=== PATIENT | male | born 1980 | race Caucasian/White ===

== ENCOUNTER 2021-01-26 05:20 | Emergency (ER) | payer BC ==
[~2021-01-26] VITALS: Ht 172.7 cm; Wt 108.0 kg
[2021-01-26] MEDS ORDERED: ALLO100T PO (05:29)
[2021-01-26] MEDS ORDERED: LOSA100T50 PO (05:29)
[2021-01-26] MEDS ORDERED: KETAMINE HCL 200 MG/20 ML VIAL IV ONE ×2 (05:50→07:10)
[2021-01-26] MEDS ORDERED: NS 1,000 ML IV SCH ×2 (05:50→07:45)
[2021-01-26] MEDS: propofoL 200 MG/20 ML VIAL IV.PROC PRN ×10 (06:17→08:02)
[2021-01-26] MEDS ORDERED: MORPHINE 4 MG/ML 1ML VIAL/SYRINGE (J2270) IV PRN (06:50)
[2021-01-26] MEDS ORDERED: fentaNYL 100 MCG/2 ML INJECTION (J3010) As Ordered ONE (07:35)
[2021-01-26] MEDS ORDERED: fentaNYL 100 MCG/2 ML INJECTION (J3010) IV ONE (07:35)
--- NOTE | 2021-01-26 08:09 | REPVR ---
PROCEDURE INFORMATION: Exam: XR Left Elbow Exam date and time: 01/26/2021 6:04 AM Age: 40 years old Clinical indication: Pain; Elbow; Left; Additional info: Pain, dislocation TECHNIQUE: Imaging protocol: XR Left elbow. Views: 3 or more views. COMPARISON: No relevant prior studies available. FINDINGS: Bones/joints: There is no acute fracture or osteochondral defect. The proximal radius looks to be displaced I think posteriorly and slightly ulnar relative to its normal position. Tiny joint effusion. Soft tissues: Normal. IMPRESSION: Dislocation without visualized fracture line. Electronically signed by: Tristen Tuttle On 01/26/2021 08:08:33 AM
--- NOTE | 2021-01-26 08:31 | CR.PDOC ---
General Date of Consultation: Jan 26, 2021 Referring Provider: Mingo Nielsen M.D. Attending Physician: Mingo Nielsen M.D. Consultation REASON FOR CONSULTATION/CHIEF COMPLAINT: [L elbow dislocation]. HISTORY OF PRESENT ILLNESS: [40 yo M s/p fall at home in the shower. Presented to OSH with same and transferred here. Denies LOC.]. ALLERGIES: Please see below. HOME MEDICATIONS: Please see below. PAST MEDICAL HISTORY: 1. [N/A]. 2. . PAST SURGICAL HISTORY: 1. [N/A] 2. SOCIAL HISTORY: + EtOH REVIEW OF SYSTEMS: CONSTITUTIONAL: . HEENT: . CARDIOVASCULAR: . RESPIRATORY: . GENITOURINARY: . MUSCULOSKELETAL: [L elbow deformity Vital Signs Date Time Temp Pulse Resp B/P (MAP) Pulse Ox O2 Delivery O2 Flow Rate FiO2 01/26/21 05:21 98.5 105 20 148/79 (102) 98 Room Air 01/26/21 06:15 98 01/26/21 06:18 3.0 ]. GASTROINTESTINAL: . SKIN: . NEUROLOGICAL: . PSYCHIATRIC: . ENDOCRINE: . HEMATOLOGIC/LYMPHATIC: . ALLERGIC/IMMUNOLOGIC: . PHYSICAL EXAMINATION: VITAL SIGNS: Please see below. GENERAL APPEARANCE: [AAOx3]. HEENT: . RESPIRATORY: [Chest rise and fall]. CARDIOVASCULAR: . ABDOMEN: . EXTREMITIES: [LUE - + deformity @ elbow AIN/PIN/U intact cap refill brisk @ 2 sec]. NEUROLOGICAL: . PSYCHIATRIC: . LABORATORY DATA: Please see below. ASSESSMENT/PLAN: 1. [40 yo M with L elbow dislocation]. 2. [Plan for closed reduction in ED --> splint]. 3. F/u 7-10 days in office. 4. NWB in splint/sling at all times Vital Signs/I&O Vital Signs Date Time Temp Pulse Resp B/P (MAP) Pulse Ox O2 Delivery O2 Flow Rate FiO2 01/26/21 07:42 20 96 Nasal Cannula 2.0 01/26/21 07:26 98 142/69 (93) 01/26/21 06:15 98 01/26/21 05:21 98.5 Allergies Coded Allergies: No Known Allergies (Unverified , 01/26/21) Home Medications Scheduled Allopurinol (Allopurinol) 100 Mg Tablet, 300 MG PO DAILY for 30 Days, #30 (Reported) Losartan Potassium (Losartan Potassium) 100 Mg Tablet, 100 MG PO DAILY for 30 Days, #30 (Reported) SERA TORRES MD Jan 26, 2021 08:30
--- NOTE | 2021-01-26 08:43 | REP ---
INDICATION: reduction. COMPARISON: Elbow series 01/26/2021. TECHNIQUE: C-arm fluoroscopy, 4 images provided. FINDINGS: Four images demonstrate the elbow joint with radial head and capitellum alignment and images are available on the PACs. IMPRESSION: Status post C-arm fluoroscopy for elbow reduction and confirmation. <Electronically signed by Miguel A Gonsales > 01/26/21 0830
[2021-01-26] MEDS ORDERED: HYDR-4571 PO (09:27)
[2021-01-26 09:30] VITALS: BP 162/88
--- NOTE | 2021-01-26 09:32 | REP ---
INDICATION: POST REDUCTION. COMPARISON: 01/26/2021 at 5:54:49 a.m. TECHNIQUE: Single incomplete lateral of the left elbow obtained 01/26/2021 at 6:38:57 a.m. FINDINGS: Incomplete lateral view with bandage in place no significant change from the exam obtained minutes earlier. IMPRESSION: I cannot confirm proper alignment on this limited exam.. <Electronically signed by Robby Ibrahim > 01/26/21 0928
== END 2021-01-26 09:41 | disposition home or self-care (01) ==
LOC: M ED 05:20
DX: S53.122A Posterior subluxation of left ulnohumeral joint, initial encounter (principal); W18.2XXA Fall in (into) shower or empty bathtub, initial encounter; Y92.012 Bathroom of single-family (private) house as the place of occurrence of the external cause; I10 Essential (primary) hypertension

== ENCOUNTER 2021-01-28 14:10 | Emergency (ER) | payer BC ==
[~2021-01-28] VITALS: Ht 172.7 cm; Wt 105.3 kg
[~2021-01-28 14:10] MED LIST: ALLO100T PO; HYDR-4571 PO; LOSA100T50 PO
[2021-01-28] MEDS ORDERED: HYDR-3713 (14:37)
[2021-01-28 19:12] VITALS: BP 162/86
== END 2021-01-28 19:14 | disposition home or self-care (01) ==
LOC: M ED 14:10
DX: R22.32 Localized swelling, mass and lump, left upper limb (principal); I10 Essential (primary) hypertension; Z79.899 Other long term (current) drug therapy

== ENCOUNTER → 2021-02-02 | Outpatient (CLI) | payer BC ==
[~2021-02-02] MED LIST changes: +HYDR-3713
--- NOTE | 2021-02-02 12:12 | REP ---
INDICATION: UNSPECIFIED DISLOCATION OF LEFT RADIAL HEAD, SUBS ENCNTR. COMPARISON: 01/26/2021. TECHNIQUE: There are three views, single AP and 2 lateral projections. FINDINGS: The previous dislocation has been satisfactorily reduced. There are no fractures. There is periarticular soft tissue edema. There is a joint hemarthrosis. IMPRESSION: Satisfactory reduction of the previous dislocation with adjacent soft tissue edema and hemarthrosis. <Electronically signed by Thomas Gracia > 02/02/21 [id number]
== END ==
LOC: M SOG 09:06
PROVIDERS: ATTEND Orthopaedic Surgery
DX: S53.005D Unspecified dislocation of left radial head, subsequent encounter (principal)

== ENCOUNTER → 2021-03-18 | Outpatient (CLI) | payer BC ==
--- NOTE | 2021-03-18 17:23 | REP ---
INDICATION: RT HIP PAIN, LT KNEE PAIN. COMPARISON: None. TECHNIQUE: AP pelvis two views right hip FINDINGS: There is been previous right hip pinning with 3 cancellous screws seen affixing an old healed right hip fracture. There is bilateral femoral head marginal osteophyte formation. There is bilateral asymmetric hip joint space narrowing right greater than left. There is no evidence of an acute fracture, dislocation, or subluxation. IMPRESSION: Chronic changes as described above. <Electronically signed by Robby Ibrahim > 03/18/21 [id number]
--- NOTE | 2021-03-18 17:23 | REP ---
INDICATION: RT HIP PAIN, LT KNEE PAIN. COMPARISON: None. TECHNIQUE: Standing bilateral AP view of the knees and additional lateral and sunrise view of the left knee. FINDINGS: The compartments are symmetric and well maintained. There is no acute fracture or destructive osseous lesion. IMPRESSION: Within normal limits <Electronically signed by Robby Ibrahim > 03/18/21 [id number]
== END ==
LOC: M SOG 11:06
PROVIDERS: ATTEND Orthopaedic Surgery Adult Reconstructive Orthopaedic Surgery
DX: M25.762 Osteophyte, left knee (principal); M25.562 Pain in left knee; M25.551 Pain in right hip

== ENCOUNTER → 2021-04-07 | Outpatient (CLI) | payer BC ==
[~2021-04-07] MED LIST changes: +BUPIVACAINE HCL 0.5% 10ML VIAL As Ordered ONE; +ISOVUE-300 61% 50ML VIAL As Ordered ONE; +methylPREDNISolone 80MG/ML SUSP 1ML VIAL (J1040) As Ordered ONE
--- NOTE | 2021-04-07 16:46 | REP ---
INDICATION: OA RIGHT HIP. COMPARISON: None. TECHNIQUE: The procedure was performed under the direct supervision of Dr. De Leon. The benefits and risks including but not limited to pain infection and bleeding and anaphylaxis were explained to the patient and informed consent was obtained. The right femoral neck was localized using fluoroscopic guidance. The skin was prepped and draped in a sterile fashion. 1% lidocaine was used as a local anesthetic. Using fluoroscopic guidance, and last image hold technology, a 22-gauge spinal needle was inserted and advanced to the femoral neck. 0.5 ml of Isovue-300 was injected to verify placement. Four ml of a solution containing 3 ml of 0.5% Marcaine and 1 mL of Depo-Medrol 80 mg was injected. The needle was then removed. The patient tolerated the procedure well and there were no immediate complications. Less than 6 seconds of fluoro time was utilized for this procedure. FINDINGS: None IMPRESSION: Fluoro guidance for right hip injection. <Electronically signed by Angelito Horvath > 04/07/21 [id number] <Electronically signed by Wong De Leon > 04/07/21 [id number]
== END ==
LOC: M RADPRO 13:20
PROVIDERS: ATTEND Orthopaedic Surgery Adult Reconstructive Orthopaedic Surgery
DX: M16.31 Unilateral osteoarthritis resulting from hip dysplasia, right hip (principal)
CPT/HCPCS: 20610; 77002; J1040; Q9967

== ENCOUNTER → 2021-04-26 | Outpatient (CLI) | payer BC ==
[~2021-04-26] MED LIST changes: -BUPIVACAINE HCL 0.5% 10ML VIAL As Ordered ONE; -ISOVUE-300 61% 50ML VIAL As Ordered ONE; -methylPREDNISolone 80MG/ML SUSP 1ML VIAL (J1040) As Ordered ONE
--- NOTE | 2021-04-26 12:23 | REP ---
INDICATION: DISLOCATION. COMPARISON: Left elbow, 02/02/2021. TECHNIQUE: Three views of the left elbow were obtained. FINDINGS: There is a moderate elbow joint effusion. There is no evidence of fracture or dislocation. There is no significant arthropathy. IMPRESSION: Moderate elbow joint effusion may be related to history of elbow dislocation. An occult fracture can not be excluded. <Electronically signed by Clark Shankar > 04/26/21 [id number]
== END ==
LOC: M SOG 09:52
PROVIDERS: ATTEND Orthopaedic Surgery
DX: M25.422 Effusion, left elbow (principal); S53.125D Posterior dislocation of left ulnohumeral joint, subsequent encounter; Y92.9 Unspecified place or not applicable; Y93.9 Activity, unspecified; Y99.9 Unspecified external cause status

== ENCOUNTER → 2021-07-12 | Outpatient (REF) ==
[~2021-07-12] MED LIST changes: +LOSA100T45 PO; -LOSA100T50 PO
== END ==
LOC: M SLEEP HO 06-07 10:00
PROVIDERS: ATTEND Physician Assistant
DX: G47.33 Obstructive sleep apnea (adult) (pediatric) (principal)

== ENCOUNTER → 2021-09-02 | Outpatient (CLI) | payer BC | LOC: M RAD 08:10 | PROVIDERS: ATTEND Physician Assistant | DX: R10.13 Epigastric pain (principal) ==

== ENCOUNTER → 2022-08-18 | Outpatient (CLI) | payer BC | LOC: M SOG 08:24 | PROVIDERS: ATTEND Orthopaedic Surgery | DX: M25.551 Pain in right hip (principal); M16.11 Unilateral primary osteoarthritis, right hip ==

== ENCOUNTER 2022-09-25 13:40 | Outpatient (RCR) | payer BC | END 2022-09-29 | LOC: M PT 13:40 | PROVIDERS: ATTEND Orthopaedic Surgery | DX: M16.11 Unilateral primary osteoarthritis, right hip (principal) ==

== ENCOUNTER → 2022-10-20 | Outpatient (CLI) | payer BC ==
[~2022-10-20] MED LIST changes: +ALLO300T2 PO; +AMLO10TA PO; +ATOR1TAB21 PO; +ERGO500029 PO; +FENO48TA8 PO; +HUMI40IN2 SC; +OMEG10002 PO; +OMEP40CA5 PO; +SULF500T41 PO
== END ==
LOC: M RAD 10:06
PROVIDERS: ATTEND Orthopaedic Surgery
DX: M16.31 Unilateral osteoarthritis resulting from hip dysplasia, right hip (principal)

== ENCOUNTER 2022-10-31 08:06 | Observation (INO) | payer BC ==
[~2022-10-31] VITALS: Ht 172.7 cm; Wt 124.7 kg
[~2022-10-31 08:06] MED LIST changes: -LOSA100T45 PO; +LOSA100T46 PO; +ROPIVA 100MG/KETOR 15MG/EPINEPHRINE 0.3MG IN NS 50ML SYRINGE PA ONE; +TRANEXAMIC ACID 100 MG/ML 10ML VIAL IV ONE; +ceFAZolin SOD 2 GM in IV 1 EA IV ONE; +oxyCODONE 5MG TAB PO ONE
[2022-10-31] MEDS ORDERED: LR 1,000 ML IV SCH ×2 (09:15→15:35)
[2022-10-31] MEDS ORDERED: LIDOCAINE 1% SDV 5ML VIAL SC PRN (09:15)
[2022-10-31] MEDS ORDERED: HOME MED LIST COMPLETE! XX SCH (09:55)
[2022-10-31] MEDS ORDERED: TRANEXAMIC ACID 100 MG/ML 10ML VIAL As Ordered ONE (11:14)
[2022-10-31] MEDS ORDERED: VANCOMYCIN 1000MG/20ML VIAL As Ordered ONE (11:14)
[2022-10-31] MEDS ORDERED: MIDAZOLAM INJ 2MG/2ML VIAL As Ordered ONE (12:10)
[2022-10-31] MEDS ORDERED: ACETAMINOPHEN 1000MG 100ML IV BAG As Ordered ONE (12:10)
[2022-10-31] MEDS ORDERED: propofoL 200 MG/20 ML VIAL As Ordered ONE (12:10)
[2022-10-31] MEDS ORDERED: SUGAMMADEX SODIUM 500 MG/5 ML VIAL (BRIDION) As Ordered ONE (12:10)
[2022-10-31] MEDS ORDERED: ONDANSETRON 4MG 2ML VIAL As Ordered ONE (12:10)
[2022-10-31] MEDS ORDERED: fentaNYL 250 MCG/5 ML INJECTION As Ordered ONE (12:10)
[2022-10-31] MEDS ORDERED: METOCLOPRAMIDE INJ 10MG/2ML VIAL As Ordered ONE (12:10)
[2022-10-31] MEDS ORDERED: ROCURONIUM BROMIDE 50MG/5ML VIAL As Ordered ONE ×2 (12:10→12:17)
[2022-10-31] MEDS ORDERED: LIDOCAINE 2% 100MG/5ML SDV (FOR ANES.) As Ordered ONE (12:10)
[2022-10-31] MEDS ORDERED: ePHEDrine SULFATE 25 MG/5 ML(5MG/ML) SYRINGE As Ordered ONE ×2 (12:10→15:10)
[2022-10-31] MEDS ORDERED: DESFLURANE 240 ML INHALANT As Ordered ONE (13:30)
[2022-10-31] MEDS ORDERED: HYDROmorphone HCL 2MG/ML 1ML VIAL As Ordered ONE (13:30)
[2022-10-31] MEDS ORDERED: ceFAZolin 2 GM/D5W 50 ML IV BAG As Ordered ONE (15:29)
[2022-10-31] MEDS ORDERED: ONDANSETRON 4MG 2ML VIAL IV PRN (15:35)
[2022-10-31] MEDS ORDERED: fentaNYL 100 MCG/2 ML INJECTION IV PRN (15:35)
[2022-10-31] MEDS ORDERED: oxyCODONE 5MG TAB PO PRN (15:55)
[2022-10-31] MEDS ORDERED: SENNA 8.6 MG TAB (SENOKOT) PO PRN (15:55)
[2022-10-31] MEDS: HYDROMORPHONE HCL 0.5 MG/ 0.5 ML SYRINGE IV PRN ×2 (16:05→16:22)
[2022-10-31] MEDS: oxyCODONE 5MG TAB PO PRN ×3 (16:06→21:19)
[2022-10-31 17:10] VITALS: BP 134/88; TEMP 98.4; O2SAT 93
[2022-10-31 17:23] LABS: HEMATOCRIT 40.9 % (42.0-52.0); HEMOGLOBIN 13.4 g/dl (13.5-17.5); MEAN CORPUSCULAR HGB CONC 32.8 g/dl (32.0-36.5); MEAN CORPUSCULAR VOLUME 91.7 fl (80.0-96.0); PLATELET COUNT, AUTOMATED 275 10^3/uL (150-450); RED BLOOD COUNT 4.46 10^6/uL (4.30-6.10); WHITE BLOOD COUNT 16.5 10^3/uL (4.0-10.0)
[2022-10-31 17:30] VITALS: BP 128/84; TEMP 97.9; O2SAT 95
[2022-10-31 17:46] LABS: BLOOD UREA NITROGEN 21 MG/DL (9-23); CALCIUM LEVEL 8.9 MG/DL (8.5-10.1); CARBON DIOXIDE LEVEL 26 MMOL/L (20-31); CHLORIDE LEVEL 104 MMOL/L (98-107); CREATININE FOR GFR 1.01 MG/DL (0.70-1.30); GLOMERULAR FILTRATION RATE > 60.0 (>60); GLUCOSE, FASTING 148 MG/DL (60-100); POTASSIUM SERUM 3.8 MMOL/L (3.5-5.1); SODIUM LEVEL 139 MMOL/L (136-145)
[2022-10-31 18:00] VITALS: BP 127/80; TEMP 97.8; O2SAT 95
[2022-10-31] MEDS: ACETAMINOPHEN TAB 650MG DOSE (2X325MG) PO SCH (18:16)
[2022-10-31 18:30] VITALS: BP 134/84; TEMP 97.9; O2SAT 95
[2022-10-31 20:38] VITALS: BP 120/74; TEMP 97.9; O2SAT 95
[2022-10-31] MEDS: sulfaSALAzine 500 MG TABEC PO SCH (21:00)
[2022-10-31] MEDS: DOCUSATE SODIUM 100MG CAPSULE PO SCH (21:19)
[2022-11-01] MEDS: ceFAZolin SOD 2 GM in IV 1 EA IV SCH ×2 (00:08→05:55)
[2022-11-01] MEDS: ACETAMINOPHEN TAB 650MG DOSE (2X325MG) PO SCH ×2 (00:09→05:52)
[2022-11-01 02:00] VITALS: BP 141/81; TEMP 97.7; O2SAT 92
[2022-11-01] MEDS: oxyCODONE 5MG TAB PO PRN (05:55)
[2022-11-01 06:28] VITALS: BP 115/57; TEMP 96.6; O2SAT 98
[2022-11-01 06:40] VITALS: BP 130/66; TEMP 97.4; O2SAT 95
[2022-11-01 06:53] LABS: HEMATOCRIT 36.1 % (42.0-52.0); HEMOGLOBIN 11.7 g/dl (13.5-17.5); MEAN CORPUSCULAR HEMOGLOBIN 29.8 pg (27.0-33.0); MEAN CORPUSCULAR HGB CONC 32.4 g/dl (32.0-36.5); MEAN CORPUSCULAR VOLUME 91.9 fl (80.0-96.0); PLATELET COUNT, AUTOMATED 232 10^3/uL (150-450); RED BLOOD COUNT 3.93 10^6/uL (4.30-6.10); WHITE BLOOD COUNT 11.3 10^3/uL (4.0-10.0)
[2022-11-01 07:10] LABS: BLOOD UREA NITROGEN 16 MG/DL (9-23); CALCIUM LEVEL 8.4 MG/DL (8.5-10.1); CARBON DIOXIDE LEVEL 27 MMOL/L (20-31); CHLORIDE LEVEL 102 MMOL/L (98-107); CREATININE FOR GFR 0.93 MG/DL (0.70-1.30); GLOMERULAR FILTRATION RATE > 60.0 (>60); GLUCOSE, FASTING 107 MG/DL (60-100); MAGNESIUM LEVEL 1.9 MG/DL (1.8-2.4); PHOSPHORUS LEVEL 4.2 MG/DL (2.5-4.9); POTASSIUM SERUM 3.7 MMOL/L (3.5-5.1); SODIUM LEVEL 137 MMOL/L (136-145)
[2022-11-01 09:00] VITALS: BP 110/68
[2022-11-01] MEDS ORDERED: OMEPRAZOLE 20MG CAP PO SCH (09:00)
[2022-11-01] MEDS ORDERED: allopurinoL 300 MG TAB PO SCH (09:00)
[2022-11-01] MEDS ORDERED: LOSARTAN 50MG TABLET PO SCH (09:00)
[2022-11-01] MEDS ORDERED: allopurinoL 100 MG TAB PO SCH (09:00)
[2022-11-01] MEDS ORDERED: OMEGA-3 1000MG CAPSULE PO SCH (09:00)
[2022-11-01] MEDS ORDERED: ATORVASTATIN 20 MG TAB PO SCH (09:00)
[2022-11-01] MEDS ORDERED: FENOFIBRATE 48MG TABLET (TRICOR) PO SCH (09:00)
[2022-11-01] MEDS: sulfaSALAzine 500 MG TABEC PO SCH (09:52)
[2022-11-01] MEDS: DOCUSATE SODIUM 100MG CAPSULE PO SCH (09:52)
[2022-11-01 10:00] VITALS: BP 126/62; TEMP 98.4; O2SAT 95
[2022-11-01] MEDS ORDERED: OXYC-517 PO ×2 (11:00→11:04)
[2022-11-01] MEDS ORDERED: ASPI81CH33 PO (11:00)
[2022-11-01] MEDS ORDERED: XARE10TA PO (11:00)
[2022-11-01] MEDS ORDERED: RIVAROXABAN 10MG TAB (XARELTO) PO SCH (18:00)
== END 2022-11-01 12:55 | disposition home or self-care (01) ==
LOC: M SDC 08:06 → UNDOADMOB 08:07 → M MS5PR 08:07 → M ED INP 08:07 → M MS5PR 11:00 → M SDC 11:00 → M MS5PR 17:10 → M ED INP 17:10 → M SDC 20:05 → M MS5PR 20:05 → UNDODISOB 11-01 12:55
PROVIDERS: ADMIT Internal Medicine; ATTEND Internal Medicine
DX: M16.32 Unilateral osteoarthritis resulting from hip dysplasia, left hip (principal); T84.84XA Pain due to internal orthopedic prosthetic devices, implants and grafts, initial encounter; Y79.2 Prosthetic and other implants, materials and accessory orthopedic devices associated with adverse incidents; I10 Essential (primary) hypertension; E78.5 Hyperlipidemia, unspecified; G47.33 Obstructive sleep apnea (adult) (pediatric); K21.9 Gastro-esophageal reflux disease without esophagitis; L40.50 Arthropathic psoriasis, unspecified; M10.9 Gout, unspecified; Z79.899 Other long term (current) drug therapy; Z79.2 Long term (current) use of antibiotics
CPT/HCPCS: 27130; 36415; 72170; 76000; 80048; 83735; 84100; 85027; 96374; 96376; 97116; 97162; 97165; 97530; C1713; C1776; J0131; J0690; J1100; J1170; J2250; J2405; J2765; J3010; S0020

== ENCOUNTER → 2022-11-08 | Outpatient (CLI) | payer BC ==
[~2022-11-08] MED LIST changes: +ASPI81CH33 PO; +OXYC-517 PO; -ROPIVA 100MG/KETOR 15MG/EPINEPHRINE 0.3MG IN NS 50ML SYRINGE PA ONE; -TRANEXAMIC ACID 100 MG/ML 10ML VIAL IV ONE; +XARE10TA PO; -ceFAZolin SOD 2 GM in IV 1 EA IV ONE; -oxyCODONE 5MG TAB PO ONE
== END ==
LOC: M SOG 08:04
PROVIDERS: ATTEND Orthopaedic Surgery
DX: Z47.89 Encounter for other orthopedic aftercare (principal); Z96.641 Presence of right artificial hip joint

== ENCOUNTER → 2023-01-24 | Outpatient (CLI) | payer BC | LOC: M SOG 07:56 | PROVIDERS: ATTEND Orthopaedic Surgery | DX: Z47.1 Aftercare following joint replacement surgery (principal); Z96.641 Presence of right artificial hip joint ==

== ENCOUNTER 2024-01-05 06:57 | Emergency (ER) | payer BC ==
[~2024-01-05] VITALS: Ht 172.7 cm; Wt 113.6 kg
[2024-01-05] MEDS ORDERED: STEL45IN (07:12)
[2024-01-05] MEDS: PERCOCET 5MG/325MG TAB PO ONE (08:19)
[2024-01-05] MEDS ORDERED: PERC5TAB12 PO (08:56)
[2024-01-05 09:49] VITALS: BP 138/70; TEMP 97.8; O2SAT 99
== END 2024-01-05 09:50 | disposition home or self-care (01) ==
LOC: M ED 06:57
DX: S83.412A Sprain of medial collateral ligament of left knee, initial encounter (principal); W17.89XA Other fall from one level to another, initial encounter; Y92.89 Other specified places as the place of occurrence of the external cause; Y93.39 Activity, other involving climbing, rappelling and jumping off; Y99.9 Unspecified external cause status; M77.32 Calcaneal spur, left foot; I10 Essential (primary) hypertension; K21.9 Gastro-esophageal reflux disease without esophagitis; M10.9 Gout, unspecified; L40.50 Arthropathic psoriasis, unspecified; Z79.899 Other long term (current) drug therapy

== ENCOUNTER → 2024-01-24 | Outpatient (CLI) | payer BC ==
[~2024-01-24] MED LIST changes: +PERC5TAB12 PO; +STEL45IN
== END ==
LOC: M SOG 08:02
PROVIDERS: ATTEND Orthopaedic Surgery
DX: M25.462 Effusion, left knee (principal)